=== PATIENT | female | born 1930 | race Caucasian/White ===

== ENCOUNTER 2020-04-04 13:49 | Emergency (ER) | payer MEDICARE ==
[~2020-04-04] VITALS: Ht 165.1 cm; Wt 67.1 kg
[2020-04-04] MEDS ORDERED: ATENOLOL 100MG100 MG PO (14:20)
[2020-04-04] MEDS ORDERED: LISINOPRIL2.5 MG PO (14:20)
[2020-04-04] MEDS ORDERED: CLONIDINE HCL0.3 M3 PO (14:20)
[2020-04-04 14:41] LABS: ABSOLUTE BASOPHILS 0.1 thou/uL (0.0-0.2); ABSOLUTE EOSINOPHILS 0.1 thou/uL (0.0-0.7); ABSOLUTE LYMPHOCYTES 3.4 thou/uL (0.8-5.3); ABSOLUTE MONOCYTES 0.7 thou/uL (0.0-1.2); ABSOLUTE NEUTROPHILS 2.9 thou/uL (1.6-8.1); BASOPHILS 1.2 %; EOSINOPHILS 1.7 %; HEMATOCRIT 39.5 % (37.0-47.0); LYMPHOCYTES 47.2 %; MCH 32.6 pg (26.0-34.0); MCHC 32.9 g/dL (28.0-37.0); MCV 99.1 fL (80.0-100.0); MONOCYTES 9.4 %; MPV 7.6 fl. (7.2-11.1); NUCLEATED RBCS 0 /100WBC; PLATELET COUNT* 231 thou/uL (150-400); POLYS 40.5 %; RBC 3.98 mil/uL (4.20-5.00); RDW-CV 14.2 % (10.5-14.5); WBC 7.2 thou/uL (4.0-11.0)
[2020-04-04 14:50] LABS: CALCIUM 8.9 mg/dL (8.5-10.1); CREATININE 0.7 mg/dL (0.6-1.3); POTASSIUM 3.9 mmol/L (3.5-5.1)
[2020-04-04 14:55] LABS: ALBUMIN 2.9 g/dL (3.4-5.0); TOTAL BILIRUBIN 0.3 mg/dL (<0.1-1.0)
[2020-04-04 16:28] VITALS: BP 149/77
--- NOTE | 2020-04-05 09:51 | EKG ---
[place] [address] ELECTROCARDIOGRAM REPORT Name: ROSI MCCOY JAMILA Room: [facility]#: [id number] Admission: 04/04/20 Attend Phys: Discharge: 04/04/20 Date of : [birth year] Date of Service: 04/04/20 1420 Report #: [id number] THIS REPORT FOR: //name// [facility] ED Test Date: 2020-04-04 Test Time: 14:20:58 Pat Name: ROSI MCCOY Department: Room: Gender: F Face Boss: : 1930 Requested By: Juan Mcclellan Order Number: [id number] MD: Maxim Ramirez Measurements Intervals [place] Rate: 64 P: 69 NE: 153 QRS: -57 QRSD: 101 T: 15 QT: 415 QTc: 428 Interpretive Statements Sinus rhythm Left anterior fascicular block Abnormal R-wave progression, late transition Baseline wander in lead(s) V6 No previous ECG available for comparison Electronically Signed On 04-05-2020 9:51:05 MEDICAL IMAGING TECH by Maxim Ramirez [email or web address] <ELECTRONICALLY SIGNED> By: Davie Ramirez MD, [facility] 04/05/20 0951 1420 1420 Davie Ramirez MD, [facility] /EPI
== END 2020-04-04 16:30 | disposition home or self-care (01) ==
LOC: M.ERS 13:49
PROVIDERS: Emergency Medicine Emergency Medical Services
DX: I10 Essential (primary) hypertension (principal); Z88.5 Allergy status to narcotic agent; Z88.2 Allergy status to sulfonamides; Z79.899 Other long term (current) drug therapy